=== PATIENT | female | born 1970 | race Caucasian/White ===

== ENCOUNTER 2021-09-03 00:53 | Inpatient (IN) | payer SELFPAY ==
[2021-09-03 03:03] VITALS: BMI 30.4
[2021-09-03] MEDS ORDERED: hydrALAZINE 20 MG/ML VIAL SLOW IVP PRN (03:23)
[2021-09-03] MEDS ORDERED: Dextrose 50% Abboject 50 ML SYRINGE SLOW IVP PRN ×2 (03:36→09:30)
[2021-09-03] MEDS ORDERED: Dextrose 5% in Water 1,000 ML IV PRN ×2 (03:36→09:30)
[2021-09-03] MEDS ORDERED: HumaLOG 300 UNITS/3 ML VIAL SC PRN ×2 (03:36)
[2021-09-03] MEDS: Acetaminophen 325 MG TAB PO PRN ×2 (03:39→10:39)
[2021-09-03] MEDS ORDERED: Nicotine 14 MG PATCH TD SCH (04:00)
[2021-09-03 05:56] LABS: #Eosinphils 0.2 thou/uL (0.0-0.7); #Lymphocytes 2.1 thou/uL (1.20-3.40); #Monocytes 0.3 thou/uL (0.11-0.59); #Neutrophils 4.9 thou/uL (1.40-6.50); %Basophils 0.2 % (0.0-1.0); %Eosinophils 2.9 % (0.0-10.0); %Lymphocytes 27.9 % (21.0-51.0); %Monocytes 4.1 % (0.0-10.0); %Neutrophils 64.8 % (42.0-75.0); Hemoglobin 14.4 g/dL (12.0-16.0); Mean Corpuscular HGB CONC 32.4 g/dL (32.0-36.0); Mean Corpuscular Hemoglobin 24.8 pg (27.0-31.0); Mean Corpuscular Volume 76.7 fL (78.0-98.0); Mean Platelet Volume 8.7 fL (7.4-10.4); Platelet Count 206 thou/uL (130-400); RBC Distribution Width 14.1 % (11.5-14.5); White Blood Cell (WBC) Count 7.5 thou/uL (4.8-10.8)
[2021-09-03 06:01] LABS: Hemoglobin A1c 12.1 % (4.0-6.0)
[2021-09-03 06:19] LABS: Anion Gap 14 mmol/L (10-20); BUN (Urea Nitrogen) 8 mg/dL (7.0-18.7); Calc. Creatinine Clearance 108 mL/min (70-130); Calcium 9.2 mg/dL (7.8-10.44); Carbon Dioxide 21 mmol/L (22-29); Cardiac Risk 8.3 (Less than 4.5); Chloride 102 mmol/L (98-107); Cholesterol 216 mg/dl (< 200 Desired); Glucose 355 mg/dL (70-105); HDL Cholesterol 26 mg/dL (>60 Neg Risk); Potassium 3.4 mmol/L (3.5-5.1); Sodium 134 mmol/L (136-145); Triglycerides 565 mg/dL (Less than 150)
[2021-09-03] MEDS ORDERED: Potassium Chloride 20 MEQ TAB PO SCH ×2 (09:30→09:45)
[2021-09-03] MEDS: Aspirin 81 mg Enteric Coated Tablet PO SCH (10:37)
[2021-09-03] MEDS: Enoxaparin Sodium 40 MG/0.4 ML SYRINGE SC SCH (10:38)
[2021-09-03] MEDS: Lisinopril 20 MG TAB PO SCH (10:38)
[2021-09-03] MEDS: Promethazine HCl 12.5 MG in Sodium Chloride 0.9% 50 ML IVPB PRN (10:38)
[2021-09-03] MEDS: NPH, Human Insulin Isophane 300 UNIT/3 ML VIAL SC SCH ×2 (10:40→22:14)
[2021-09-03] MEDS: Nicotine 14 MG PATCH TD SCH (17:15)
[2021-09-03] MEDS: HumaLOG 300 UNITS/3 ML VIAL SC PRN (17:16)
[2021-09-03] MEDS: Rosuvastatin 20 MG TAB PO SCH (20:22)
[2021-09-03] MEDS: HYDROcodone/Acetaminophen 5/325 mg Tablet PO PRN (20:22)
[2021-09-03] MEDS ORDERED: Atorvastatin Calcium 40 MG TAB PO SCH (21:00)
[2021-09-03] MEDS: HumuLIN 70/30 (300 UNITS/3 ML VIAL) SC SCH (22:14)
[2021-09-04] MEDS: Promethazine HCl 12.5 MG in Sodium Chloride 0.9% 50 ML IVPB PRN ×2 (02:44→11:04)
[2021-09-04 05:35] LABS: #Eosinphils 0.2 thou/uL (0.0-0.7); #Lymphocytes 1.6 thou/uL (1.20-3.40); #Monocytes 0.3 thou/uL (0.11-0.59); #Neutrophils 3.7 thou/uL (1.40-6.50); %Basophils 0.2 % (0.0-1.0); %Eosinophils 4.2 % (0.0-10.0); %Monocytes 4.8 % (0.0-10.0); %Neutrophils 63.8 % (42.0-75.0); Hemoglobin 14.1 g/dL (12.0-16.0); Mean Corpuscular HGB CONC 33.2 g/dL (32.0-36.0); Mean Corpuscular Hemoglobin 25.6 pg (27.0-31.0); Mean Corpuscular Volume 77.2 fL (78.0-98.0); Mean Platelet Volume 8.8 fL (7.4-10.4); Platelet Count 195 thou/uL (130-400); RBC Distribution Width 14.1 % (11.5-14.5); Red Blood Cell (RBC) Count 5.52 mill/uL (4.20-5.40); White Blood Cell (WBC) Count 5.8 thou/uL (4.8-10.8)
[2021-09-04 05:58] LABS: Anion Gap 12 mmol/L (10-20); BUN (Urea Nitrogen) 9 mg/dL (7.0-18.7); Calc. Creatinine Clearance 116 mL/min (70-130); Calcium 9.2 mg/dL (7.8-10.44); Carbon Dioxide 23 mmol/L (22-29); Chloride 103 mmol/L (98-107); Glucose 258 mg/dL (70-105); Potassium 3.9 mmol/L (3.5-5.1); Sodium 134 mmol/L (136-145)
[2021-09-04] MEDS: HumaLOG 300 UNITS/3 ML VIAL SC PRN ×3 (06:09→17:59)
[2021-09-04] MEDS: HYDROcodone/Acetaminophen 5/325 mg Tablet PO PRN (08:43)
[2021-09-04] MEDS: Lisinopril 20 MG TAB PO SCH (08:43)
[2021-09-04] MEDS: Fenofibrate Nanocrystallized 145 MG TAB PO SCH (08:44)
[2021-09-04] MEDS: Aspirin 81 mg Enteric Coated Tablet PO SCH (08:44)
[2021-09-04] MEDS: Enoxaparin Sodium 40 MG/0.4 ML SYRINGE SC SCH (08:44)
[2021-09-04] MEDS: HumuLIN 70/30 (300 UNITS/3 ML VIAL) SC SCH ×2 (09:49→22:21)
[2021-09-04] MEDS: NPH, Human Insulin Isophane 300 UNIT/3 ML VIAL SC SCH ×2 (09:49→22:21)
[2021-09-04] MEDS ORDERED: Clopidogrel Bisulfate 300 MG TAB PO SCH (13:30)
[2021-09-04] MEDS: Nicotine 14 MG PATCH TD SCH (17:51)
[2021-09-04] MEDS: metFORMIN 850 MG TAB PO SCH (17:51)
[2021-09-04] MEDS: Rosuvastatin 20 MG TAB PO SCH (22:21)
[2021-09-05] MEDS: Promethazine HCl 12.5 MG in Sodium Chloride 0.9% 50 ML IVPB PRN (03:43)
[2021-09-05 06:16] LABS: #Eosinphils 0.2 thou/uL (0.0-0.7); #Lymphocytes 1.8 thou/uL (1.20-3.40); #Monocytes 0.3 thou/uL (0.11-0.59); #Neutrophils 4.3 thou/uL (1.40-6.50); %Basophils 0.7 % (0.0-1.0); %Eosinophils 3.6 % (0.0-10.0); %Lymphocytes 27.1 % (21.0-51.0); %Monocytes 4.6 % (0.0-10.0); Hemoglobin 14.3 g/dL (12.0-16.0); Mean Corpuscular HGB CONC 33.7 g/dL (32.0-36.0); Mean Corpuscular Hemoglobin 26.3 pg (27.0-31.0); Mean Corpuscular Volume 78.1 fL (78.0-98.0); Mean Platelet Volume 9.3 fL (7.4-10.4); Platelet Count 212 thou/uL (130-400); RBC Distribution Width 14.3 % (11.5-14.5); Red Blood Cell (RBC) Count 5.44 mill/uL (4.20-5.40); White Blood Cell (WBC) Count 6.7 thou/uL (4.8-10.8)
[2021-09-05] MEDS: HumaLOG 300 UNITS/3 ML VIAL SC PRN ×3 (06:37→17:15)
[2021-09-05 06:42] LABS: Anion Gap 14 mmol/L (10-20); BUN (Urea Nitrogen) 11 mg/dL (7.0-18.7); Calc. Creatinine Clearance 118 mL/min (70-130); Calcium 9.5 mg/dL (7.8-10.44); Carbon Dioxide 22 mmol/L (22-29); Chloride 103 mmol/L (98-107); Glucose 185 mg/dL (70-105); Potassium 3.7 mmol/L (3.5-5.1); Sodium 135 mmol/L (136-145)
[2021-09-05] MEDS: Acetaminophen 325 MG TAB PO PRN (08:35)
[2021-09-05] MEDS: Aspirin 81 mg Enteric Coated Tablet PO SCH (08:35)
[2021-09-05] MEDS: Fenofibrate Nanocrystallized 145 MG TAB PO SCH (08:35)
[2021-09-05] MEDS: Lisinopril 20 MG TAB PO SCH (08:36)
[2021-09-05] MEDS: metFORMIN 850 MG TAB PO SCH ×2 (08:37→17:22)
[2021-09-05] MEDS: NPH, Human Insulin Isophane 300 UNIT/3 ML VIAL SC SCH (08:37)
[2021-09-05] MEDS: HumuLIN 70/30 (300 UNITS/3 ML VIAL) SC SCH (08:37)
[2021-09-05] MEDS: Enoxaparin Sodium 40 MG/0.4 ML SYRINGE SC SCH (08:38)
[2021-09-05] MEDS ORDERED: Clopidogrel Bisulfate 75 MG TAB PO SCH (09:00)
[2021-09-05 15:41] VITALS: BP 132/79; TEMP 98.3
[2021-09-05] MEDS: Nicotine 14 MG PATCH TD SCH (17:37)
== END 2021-09-05 17:42 | disposition home or self-care (01) | DRG 65 ==
LOC: NEURO 00:53 → OBSVTOIN 09-04 11:29
PROVIDERS: ADMIT Internal Medicine; ATTEND Internal Medicine
DX: I63.9 Cerebral infarction, unspecified (principal); G81.14 Spastic hemiplegia affecting left nondominant side; R47.81 Slurred speech; R29.810 Facial weakness; F17.210 Nicotine dependence, cigarettes, uncomplicated; I10 Essential (primary) hypertension; E11.65 Type 2 diabetes mellitus with hyperglycemia; Z88.8 Allergy status to other drugs, medicaments and biological substances; Z88.1 Allergy status to other antibiotic agents; Z88.2 Allergy status to sulfonamides; Z90.49 Acquired absence of other specified parts of digestive tract; Z90.710 Acquired absence of both cervix and uterus
CPT/HCPCS: 36415; 36416; 70551; 80048; 80061; 83036; 85025; 93306; 93880; 96365; 96372; 96376; G0378; J1650; J1815; J2550

== ENCOUNTER 2023-01-17 23:14 | Emergency (ER) | payer SELFPAY ==
[2023-01-17] MEDS ORDERED: Acetaminophen 500 MG TAB ONE (23:37)
[2023-01-18 00:28] LABS: SARS-CoV-2 NAA Rapid Test Not Detected (NotDetected)
== END 2023-01-18 00:45 | disposition home or self-care (01) ==
LOC: ERS 23:14
DX: B34.9 Viral infection, unspecified (principal); I10 Essential (primary) hypertension; F17.210 Nicotine dependence, cigarettes, uncomplicated; Z20.822 Contact with and (suspected) exposure to COVID-19
CPT/HCPCS: 71045; 93005

== ENCOUNTER 2024-08-07 19:11 | Inpatient (IN) | payer OTHER ==
[~2024-08-07 19:11] MED LIST: Iopamidol 370 76% 100 ML VIAL ONE
[2024-08-07] MEDS ORDERED: Metoprolol Tartrate 5 MG (5 mL) VIAL ONE (19:13)
[2024-08-07] MEDS ORDERED: Nitroglycerin 50 MG/250 ML BOT 250 ML ONE (19:20)
[2024-08-07] MEDS ORDERED: Verapamil 5 MG/2 ML VIAL ONE (19:20)
[2024-08-07] MEDS ORDERED: Heparin 10,000 UNITS/ 10 ML VIAL ONE (19:20)
[2024-08-07] MEDS ORDERED: Midazolam HCl 2 mg/2 ml Vial ONE ×2 (19:29→22:08)
[2024-08-07] MEDS ORDERED: Amiodarone 150 MG/3 ML VIAL ONE ×2 (19:39→19:42)
[2024-08-07] MEDS ORDERED: Atropine Sulfate 1 mg/10 ml Syringe ONE (19:55)
[2024-08-07] MEDS ORDERED: DOPamine 400 MG/D5W 250 ML 250 ML ONE (19:58)
[2024-08-07] MEDS ORDERED: EPINEPHrine 1 MG/10 ML Abboject SYRINGE ONE (20:08)
[2024-08-07] MEDS ORDERED: Promethazine HCl 25 MG/ML VIAL ONE (20:13)
[2024-08-07] MEDS ORDERED: fentaNYL 50 mcg/mL 1 mL Vial ONE ×2 (20:20→21:57)
[2024-08-07] MEDS ORDERED: Tirofiban-0.9% Sodium Chloride 250 ML ONE (20:25)
[2024-08-07] MEDS ORDERED: Nitroglycerin 0.4 MG TAB (25 Tab Bottle) SL PRN (23:02)
[2024-08-07 23:09] LABS: #Basophils Less than 0.03 10x3/uL (0.0-0.2); %Basophils 0.1 % (0.0-1.0); %Lymphocytes 9.3 % (21.0-51.0); %Monocytes 2.4 % (0.0-10.0); %Neutrophils 86.7 % (42.0-75.0); Hematocrit 41.1 % (36.0-47.0); Hemoglobin 13.5 g/dL (12.0-16.0); Mean Corpuscular HGB CONC 32.8 g/dL (32.0-36.0); Mean Corpuscular Hemoglobin 26.4 pg (27.0-31.0); Mean Corpuscular Volume 80.4 fL (78.0-98.0); Mean Platelet Volume 11.7 fL (7.4-10.4); Platelet Count 243 10x3/uL (130-400); RBC Distribution Width 13.3 % (11.5-14.5); Red Blood Cell (RBC) Count 5.11 mill/uL (4.20-5.40)
[2024-08-07] MEDS ORDERED: Mag-Al 1200 mg/1200 mg/30 ML UDCUP PO PRN (23:13)
[2024-08-07] MEDS ORDERED: Milk Of Magnesia 30 ML UDCUP PO PRN (23:13)
[2024-08-07] MEDS ORDERED: Tirofiban-0.9% Sodium Chloride 250 ML IVPB SCH (23:15)
[2024-08-07 23:18] LABS: ALT (SGPT) 40 U/L (8-55); AST (SGOT) 34 U/L (5-34); Alkaline Phosphatase 138 U/L (40-110); Anion Gap 22 mmol/L (10-20); BUN (Urea Nitrogen) 19 mg/dL (9.8-20.1); Bilirubin, Total 0.3 mg/dL (0.2-1.2); Calc. Creatinine Clearance 0 mL/min (70-130); Calcium 9.3 mg/dL (7.8-10.44); Carbon Dioxide 17 mmol/L (22-29); Chloride 104 mmol/L (98-107); Cholesterol 136 mg/dl (< 200 Desired); Estimated GFR 53; Globulin 3.2 g/dL (2.4-3.5); Glucose 309 mg/dL (70-105); HDL Cholesterol 25 mg/dL (>60 Neg Risk); Potassium 3.6 mmol/L (3.5-5.1); Protein, Total 7.2 g/dL (6.0-8.3); Sodium 139 mmol/L (136-145)
[2024-08-07 23:28] LABS: Troponin I 0.215 ng/mL (< 0.028)
[2024-08-07] MEDS ORDERED: Promethazine HCl 12.5 MG in Sodium Chloride 0.9% 50 ML IVPB PRN (23:55)
[2024-08-08] MEDS: DOPamine 400 MG/D5W 250 ML 250 ML ONE (00:09)
[2024-08-08] MEDS: Sodium Chloride 0.9% 1,000 ML IV SCH ×4 (00:17→21:54)
[2024-08-08] MEDS: DOPamine 400 MG/D5W 250 ML 250 ML IVPB SCH (00:19)
[2024-08-08] MEDS ORDERED: Dextrose 50% Abboject 50 ML SYRINGE SLOW IVP PRN (00:26)
[2024-08-08] MEDS ORDERED: Insulin Lispro 100 UNIT/ML 10 ML VIAL SC PRN (00:26)
[2024-08-08] MEDS ORDERED: Dextrose 5% in Water 1,000 ML IV PRN (00:26)
[2024-08-08] MEDS ORDERED: Glucagon 1 MG/ML KIT IM PRN (00:26)
[2024-08-08] MEDS: Promethazine HCl 12.5 MG in Sodium Chloride 0.9% 100 ML IVPB PRN (01:48)
[2024-08-08] MEDS: Amiodarone 450 MG in Dextrose 5% in Water 250 ML IVPB SCH (02:39)
[2024-08-08 03:41] LABS: Analyzer IN Cardio ER; Base Excess -15.5 mEq/L (-2.0 to +3.0); Calcium, Ionized (venous) 1.07 mmol/L (1.16-1.32); Chloride (VBG) 101 mmol/L (98-106); Hematocrit-VBG 37 % (36.0-47.0); Hemoglobin (Hb) 12.6 g/dL (11.7-16.0); Sodium 130 mmol/L (133-146); pH (venous) 7.238 (7.32-7.43)
[2024-08-08 03:42] LABS: Actual Bicarbonate (HCO3v) 10.1 mEq/L (22-28); Potassium (VBG) 6.13 mmol/L (3.70-5.30)
[2024-08-08 04:36] LABS: Troponin I 110.129 ng/mL (< 0.028)
[2024-08-08 06:02] VITALS: BMI 28.0
[2024-08-08 06:04] LABS: Hemoglobin A1c 6.9 % (4.0-6.0)
[2024-08-08 06:24] LABS: ALT (SGPT) 121 U/L (8-55); AST (SGOT) 308 U/L (5-34); Albumin 3.3 g/dL (3.5-5.0); Alkaline Phosphatase 132 U/L (40-110); Anion Gap 19 mmol/L (10-20); BUN (Urea Nitrogen) 23 mg/dL (9.8-20.1); Bilirubin, Total 0.5 mg/dL (0.2-1.2); Calc. Creatinine Clearance 48 mL/min (70-130); Calcium 7.8 mg/dL (7.8-10.44); Carbon Dioxide 11 mmol/L (22-29); Cardiac Risk 4.7 (Less than 4.5); Chloride 104 mmol/L (98-107); Cholesterol 113 mg/dl (< 200 Desired); Estimated GFR 35; Globulin 2.6 g/dL (2.4-3.5); Glucose 678 mg/dL (70-105); HDL Cholesterol 24 mg/dL (>60 Neg Risk); LDL Cholesterol, Calculated 34 mg/dL; Magnesium 1.8 mg/dL (1.6-2.6); Potassium 6.4 mmol/L (3.5-5.1); Protein, Total 5.9 g/dL (6.0-8.3); Sodium 128 mmol/L (136-145); Triglycerides 274 mg/dL (Less than 150)
[2024-08-08 06:35] LABS: Glucose 610 mg/dL (70-105)
[2024-08-08 06:35] LABS: Lactic Acid 5.06 mmol/L (0.5-2.2)
[2024-08-08] MEDS: Insulin Regular, Human 100 UNIT/ML 10 ML VIAL IVP SCH (06:48)
[2024-08-08 06:49] LABS: Lymphocytes 4 % (21-51); Macrocytosis SLIGHT = 6-15 cells HPF (0-5); Monocytes 3 % (0-10); Neutrophil 93 % (42-75); Platelet Adequacy Comment Platelets Normal
[2024-08-08] MEDS: Sodium Bicarb 50 MEQ/50 ML Abboject 8.4% SYRINGE IVP SCH (06:49)
[2024-08-08] MEDS: Magnesium 2 GM/50 ML(in water) 2 GM in Premix 1 BAG IVPB SCH (06:49)
[2024-08-08 06:52] LABS: Hematocrit 37.2 % (36.0-47.0); Hemoglobin 11.8 g/dL (12.0-16.0); Mean Corpuscular HGB CONC 31.7 g/dL (32.0-36.0); Mean Corpuscular Hemoglobin 26.3 pg (27.0-31.0); Mean Corpuscular Volume 82.9 fL (78.0-98.0); Mean Platelet Volume 11.7 fL (7.4-10.4); Platelet Count 368 10x3/uL (130-400); RBC Distribution Width 13.8 % (11.5-14.5); Red Blood Cell (RBC) Count 4.49 mill/uL (4.20-5.40)
[2024-08-08] MEDS: Sodium Bicarb 50 MEQ/50 ML Abboject 8.4% SYRINGE ONE (07:00)
[2024-08-08 08:34] LABS: ALT (SGPT) 282 U/L (8-55); AST (SGOT) 427 U/L (5-34); Albumin 3.1 g/dL (3.5-5.0); Alkaline Phosphatase 130 U/L (40-110); Anion Gap 19 mmol/L (10-20); BUN (Urea Nitrogen) 22 mg/dL (9.8-20.1); Bilirubin, Total 0.7 mg/dL (0.2-1.2); Calc. Creatinine Clearance 52 mL/min (70-130); Calcium 7.8 mg/dL (7.8-10.44); Carbon Dioxide 15 mmol/L (22-29); Chloride 107 mmol/L (98-107); Estimated GFR 38; Globulin 2.5 g/dL (2.4-3.5); Glucose 509 mg/dL (70-105); Lactic Acid 7.37 mmol/L (0.5-2.2); Potassium 3.8 mmol/L (3.5-5.1); Protein, Total 5.6 g/dL (6.0-8.3); Sodium 137 mmol/L (136-145)
[2024-08-08 08:37] LABS: Amphetamine Detected (NotDetected); Barbiturates Screen Not Detected (NotDetected); Benzodiazepine Screen Not Detected (NotDetected); Cocaine Metabolite Screen Not Detected (NotDetected); Methadone Not Detected (NotDetected); Methamphetamine Detected (NotDetected); Opiate Screen Detected (NotDetected); Oxycodone Screen Not Detected (NotDetected); Phencyclidine (PCP) Not Detected (NotDetected); THC/Cannabinoid Screen Not Detected (NotDetected); Tricyclic Screen Not Detected (NotDetected)
[2024-08-08 08:46] LABS: Bilirubin Negative (Negative); Blood, Urine 1+ (Negative); CAUTI Indications for Culture Dysuria,urgency,freq; Clarity Clear (Clear); Glucose, Urine (Dipstick) Greater than 1000 mg/dL (Negative); Ketone, Urine Negative (Negative); Leukocyte Negative Leu/uL (Negative); Nitrite Negative (Negative); Protein, Urine (Dipstick) 50 mg/dL (Neg-Trace); RBC/HPF 0-3 HPF (0-3); Squamous Epithelial None Seen HPF (0-3); Urobilinogen Normal mg/dL (Less than 2); WBC/HPF 0-3 HPF (0-3)
[2024-08-08] MEDS: Clopidogrel Bisulfate 75 MG TAB PO SCH (08:54)
[2024-08-08] MEDS: Aspirin 81 mg Enteric Coated Tablet PO SCH (08:54)
[2024-08-08] MEDS: Insulin Glargine 30 UNITS/0.3 ML VIAL SC SCH (08:54)
[2024-08-08] MEDS: QUEtiapine 25 MG TAB PO SCH (08:54)
[2024-08-08] MEDS ORDERED: Aspirin Chewable 81 MG TAB PO SCH (09:00)
[2024-08-08] MEDS ORDERED: Lisinopril 2.5 MG TAB PO SCH (09:00)
[2024-08-08] MEDS ORDERED: Clopidogrel Bisulfate 75 MG TAB PO SCH (09:00)
[2024-08-08] MEDS ORDERED: Metoprolol Tartrate 25 MG TAB PO SCH ×2 (09:00)
[2024-08-08 09:14] LABS: Specific Gravity, Urine 1.056 (1.002-1.036)
[2024-08-08 09:15] LABS: Bacteria/HPF Rare-Few HPF (None Seen)
[2024-08-08 09:16] LABS: Urine Culture Reflex No No
[2024-08-08] MEDS: Tirofiban-0.9% Sodium Chloride 250 ML IVPB SCH (09:50)
[2024-08-08] MEDS: Nicotine 21 MG PATCH TD SCH (10:00)
[2024-08-08] MEDS: Insulin Lispro 100 UNIT/ML 10 ML VIAL SC PRN (10:01)
[2024-08-08] MEDS: Enoxaparin 40 MG (0.4 mL) SYRINGE SC SCH ×2 (10:18→21:50)
[2024-08-08 14:07] LABS: Troponin I 139.173 ng/mL (< 0.028)
[2024-08-08] MEDS: Atorvastatin Calcium 40 MG TAB PO SCH (21:49)
[2024-08-08] MEDS: Nicotine 7 MG PATCH TD SCH (21:54)
[2024-08-09 05:55] LABS: Lactic Acid 1.18 mmol/L (0.5-2.2)
[2024-08-09 07:15] LABS: Anion Gap 14 mmol/L (10-20); BUN (Urea Nitrogen) 22 mg/dL (9.8-20.1); Calc. Creatinine Clearance 66 mL/min (70-130); Calcium 8.1 mg/dL (7.8-10.44); Carbon Dioxide 18 mmol/L (22-29); Chloride 109 mmol/L (98-107); Estimated GFR 50; Glucose 229 mg/dL (70-105); Potassium 3.8 mmol/L (3.5-5.1); Sodium 137 mmol/L (136-145)
[2024-08-09] MEDS: Metoclopramide HCl 10 MG (2 mL) VIAL IVP SCH (10:43)
[2024-08-09] MEDS: ALPRAZolam 0.5 MG TAB PO SCH (10:44)
[2024-08-09 10:47] LABS: #Basophils Less than 0.03 10x3/uL (0.0-0.2); #Eosinophils Less than 0.03 10x3/uL (0.0-0.7); %Basophils 0.1 % (0.0-1.0); %Lymphocytes 8.5 % (21.0-51.0); %Monocytes 4.6 % (0.0-10.0); %Neutrophils 86.4 % (42.0-75.0); Hematocrit 28.7 % (36.0-47.0); Hemoglobin 9.6 g/dL (12.0-16.0); Mean Corpuscular HGB CONC 33.4 g/dL (32.0-36.0); Mean Corpuscular Hemoglobin 26.4 pg (27.0-31.0); Mean Corpuscular Volume 79.1 fL (78.0-98.0); Mean Platelet Volume 10.6 fL (7.4-10.4); Platelet Count 198 10x3/uL (130-400); RBC Distribution Width 14.4 % (11.5-14.5); Red Blood Cell (RBC) Count 3.63 mill/uL (4.20-5.40)
[2024-08-09] MEDS: Amiodarone 200 MG TAB PO SCH ×2 (13:09→20:34)
[2024-08-09] MEDS: Promethazine HCl 12.5 MG in Sodium Chloride 0.9% 50 ML IVPB SCH (20:34)
[2024-08-10 04:46] LABS: #Basophils Less than 0.03 10x3/uL (0.0-0.2); #Eosinophils Less than 0.03 10x3/uL (0.0-0.7); %Basophils 0.1 % (0.0-1.0); %Lymphocytes 13.8 % (21.0-51.0); %Monocytes 5.3 % (0.0-10.0); %Neutrophils 80.4 % (42.0-75.0); Hemoglobin 8.9 g/dL (12.0-16.0); Mean Corpuscular Hemoglobin 26.6 pg (27.0-31.0); Mean Corpuscular Volume 80.6 fL (78.0-98.0); Mean Platelet Volume 11.2 fL (7.4-10.4); Platelet Count 197 10x3/uL (130-400); RBC Distribution Width 14.7 % (11.5-14.5); Red Blood Cell (RBC) Count 3.35 mill/uL (4.20-5.40)
[2024-08-10 05:18] LABS: ALT (SGPT) 664 U/L (8-55); AST (SGOT) 375 U/L (5-34); Albumin 2.8 g/dL (3.5-5.0); Alkaline Phosphatase 129 U/L (40-110); Bilirubin, Direct 0.2 mg/dL (0.1-0.3); Bilirubin, Total 0.3 mg/dL (0.2-1.2); Protein, Total 4.9 g/dL (6.0-8.3)
[2024-08-10 05:22] LABS: Anion Gap 10 mmol/L (10-20); BUN (Urea Nitrogen) 22 mg/dL (9.8-20.1); Calc. Creatinine Clearance 67 mL/min (70-130); Calcium 7.7 mg/dL (7.8-10.44); Carbon Dioxide 18 mmol/L (22-29); Chloride 115 mmol/L (98-107); Estimated GFR 51; Glucose 140 mg/dL (70-105); Potassium 3.8 mmol/L (3.5-5.1); Sodium 139 mmol/L (136-145)
[2024-08-10 06:02] LABS: Critical Call Chem Troponin I RESULT DECREASING
[2024-08-10] MEDS: Pantoprazole DR 40 MG TAB PO SCH (08:08)
[2024-08-10] MEDS ORDERED: Ondansetron PF 4 MG/2 ML Vial IVP PRN ×2 (09:39→09:41)
[2024-08-11 04:49] LABS: #Basophils Less than 0.03 10x3/uL (0.0-0.2); %Basophils 0.2 % (0.0-1.0); %Eosinophils 0.4 % (0.0-10.0); %Lymphocytes 13.8 % (21.0-51.0); %Monocytes 4.1 % (0.0-10.0); %Neutrophils 80.9 % (42.0-75.0); Hematocrit 28.6 % (36.0-47.0); Hemoglobin 8.9 g/dL (12.0-16.0); Mean Corpuscular HGB CONC 31.1 g/dL (32.0-36.0); Mean Corpuscular Hemoglobin 26.3 pg (27.0-31.0); Mean Corpuscular Volume 84.6 fL (78.0-98.0); Mean Platelet Volume 11.4 fL (7.4-10.4); Platelet Count 165 10x3/uL (130-400); RBC Distribution Width 14.6 % (11.5-14.5); Red Blood Cell (RBC) Count 3.38 mill/uL (4.20-5.40)
[2024-08-11 05:34] LABS: Anion Gap 12 mmol/L (10-20); BUN (Urea Nitrogen) 20 mg/dL (9.8-20.1); Calc. Creatinine Clearance 75 mL/min (70-130); Carbon Dioxide 17 mmol/L (22-29); Chloride 111 mmol/L (98-107); Estimated GFR 53; Glucose 115 mg/dL (70-105); Potassium 3.5 mmol/L (3.5-5.1); Sodium 136 mmol/L (136-145)
[2024-08-11 05:50] LABS: ALT (SGPT) 502 U/L (8-55); AST (SGOT) 174 U/L (5-34); Albumin 2.8 g/dL (3.5-5.0); Alkaline Phosphatase 135 U/L (40-110); Bilirubin, Direct 0.2 mg/dL (0.1-0.3); Bilirubin, Total 0.4 mg/dL (0.2-1.2); Protein, Total 5.1 g/dL (6.0-8.3)
[2024-08-11] MEDS: Promethazine HCl 12.5 MG in Sodium Chloride 0.9% 50 ML IVPB PRN (08:37)
[2024-08-11] MEDS: Lisinopril 5 MG TAB PO SCH (09:18)
[2024-08-11] MEDS: Morphine 4 MG/ML VIAL SLOW IVP PRN (18:49)
[2024-08-12 05:42] LABS: #Basophils Less than 0.03 10x3/uL (0.0-0.2); %Basophils 0.1 % (0.0-1.0); %Eosinophils 1.4 % (0.0-10.0); %Monocytes 5.2 % (0.0-10.0); %Neutrophils 77.5 % (42.0-75.0); Hematocrit 29.8 % (36.0-47.0); Hemoglobin 9.3 g/dL (12.0-16.0); Mean Corpuscular HGB CONC 31.2 g/dL (32.0-36.0); Mean Corpuscular Hemoglobin 26.5 pg (27.0-31.0); Mean Corpuscular Volume 84.9 fL (78.0-98.0); Mean Platelet Volume 11.6 fL (7.4-10.4); Platelet Count 155 10x3/uL (130-400); RBC Distribution Width 14.5 % (11.5-14.5); Red Blood Cell (RBC) Count 3.51 mill/uL (4.20-5.40)
[2024-08-12 06:05] LABS: ALT (SGPT) 307 U/L (8-55); AST (SGOT) 60 U/L (5-34); Albumin 2.8 g/dL (3.5-5.0); Alkaline Phosphatase 134 U/L (40-110); Anion Gap 11 mmol/L (10-20); BUN (Urea Nitrogen) 17 mg/dL (9.8-20.1); Bilirubin, Direct 0.2 mg/dL (0.1-0.3); Bilirubin, Total 0.4 mg/dL (0.2-1.2); Calc. Creatinine Clearance 73 mL/min (70-130); Calcium 8.1 mg/dL (7.8-10.44); Carbon Dioxide 18 mmol/L (22-29); Chloride 110 mmol/L (98-107); Estimated GFR 51; Glucose 111 mg/dL (70-105); Potassium 3.4 mmol/L (3.5-5.1); Protein, Total 5.3 g/dL (6.0-8.3); Sodium 136 mmol/L (136-145)
[2024-08-12] MEDS: Potassium Chloride 20 MEQ TAB PO SCH (09:15)
[2024-08-12 10:50] VITALS: BMI 30.7
[2024-08-12] MEDS: Promethazine 25 MG TAB PO SCH (11:37)
[2024-08-12 16:13] VITALS: BP 106/58; TEMP 98
== END 2024-08-12 17:17 | disposition home or self-care (01) | DRG 321 ==
LOC: ERS 19:11 → CCL 19:18 → CCU 20:42 → 2NO 08-10 17:15
PROVIDERS: ADMIT Internal Medicine; ATTEND Internal Medicine
PROC: 027037Z Dilation of Coronary Artery, One Artery with Four or More Drug-eluting Intraluminal Devices, Percutaneous Approach (ICD-10-PCS; principal; 2024-08-09)
PROC: 4A023N7 Measurement of Cardiac Sampling and Pressure, Left Heart, Percutaneous Approach (ICD-10-PCS; 2024-08-09)
PROC: B2111ZZ Fluoroscopy of Multiple Coronary Arteries using Low Osmolar Contrast (ICD-10-PCS; 2024-08-09)
DX: I21.19 ST elevation (STEMI) myocardial infarction involving other coronary artery of inferior wall (principal); R57.0 Cardiogenic shock; I47.20 Ventricular tachycardia, unspecified; N17.9 Acute kidney failure, unspecified; E87.20 Acidosis, unspecified; E87.1 Hypo-osmolality and hyponatremia; E87.6 Hypokalemia; I25.10 Atherosclerotic heart disease of native coronary artery without angina pectoris; R79.89 Other specified abnormal findings of blood chemistry; F15.10 Other stimulant abuse, uncomplicated; E11.22 Type 2 diabetes mellitus with diabetic chronic kidney disease; I12.9 Hypertensive chronic kidney disease with stage 1 through stage 4 chronic kidney disease, or unspecified chronic kidney disease; E87.5 Hyperkalemia; R00.1 Bradycardia, unspecified; G89.29 Other chronic pain; M54.9 Dorsalgia, unspecified; D72.829 Elevated white blood cell count, unspecified; N18.30 Chronic kidney disease, stage 3 unspecified; E78.00 Pure hypercholesterolemia, unspecified; Z88.8 Allergy status to other drugs, medicaments and biological substances; Z88.0 Allergy status to penicillin; Z86.73 Personal history of transient ischemic attack (TIA), and cerebral infarction without residual deficits; Z90.49 Acquired absence of other specified parts of digestive tract; Z95.5 Presence of coronary angioplasty implant and graft; Z90.710 Acquired absence of both cervix and uterus; Z71.6 Tobacco abuse counseling
CPT/HCPCS: 36415; 36416; 71045; 80048; 80053; 80061; 80076; 80306; 81001; 82010; 82465; 82805; 83036; 83605; 83718; 83735; 84484; 85025; 85347; 92941; 93005; 93010; 93306; 93454; 93798; 96374; 96375; 97139; 99152; 99153; C1725; C1769; C1874; C1876; C1887; C1894; C9606; J0171; J0282; J0461; J1265; J1644; J1650; J1815; J2250; J2272; J2550; J2765; J3010; J3246; J3475; J7030; J7070; Q0169; Q9967

== ENCOUNTER 2024-09-08 08:31 | Emergency (ER) | payer OTHER | END 2024-09-08 10:26 | disposition home or self-care (01) | LOC: ERS 08:31 | DX: S93.401A Sprain of unspecified ligament of right ankle, initial encounter (principal); E11.9 Type 2 diabetes mellitus without complications; I10 Essential (primary) hypertension; Z87.891 Personal history of nicotine dependence; W01.0XXA Fall on same level from slipping, tripping and stumbling without subsequent striking against object, initial encounter | CPT/HCPCS: 99283 ==

== ENCOUNTER 2025-08-11 14:00 | Inpatient (IN) | payer BC, OTHER ==
[2025-08-11 14:19] LABS: #Basophils Less than 0.03 10x3/uL (0.0-0.2); #Eosinophils 0.47 10x3/uL (0.0-0.7); #Monocytes 0.40 10x3/uL (0.11-0.59); #Neutrophils 6.25 10x3/uL (1.40-6.50); %Basophils 0.2 % (0.0-1.0); %Eosinophils 5.4 % (0.0-10.0); %Lymphocytes 18.0 % (21.0-51.0); %Monocytes 4.6 % (0.0-10.0); %Neutrophils 71.6 % (42.0-75.0); Hematocrit 40.2 % (36.0-47.0); Hemoglobin 12.6 g/dL (12.0-16.0); Mean Corpuscular Hemoglobin 24.6 pg (27.0-31.0); Mean Corpuscular Volume 78.4 fL (78.0-98.0); Platelet Count 209 10x3/uL (130-400); Red Blood Cell (RBC) Count 5.13 mill/uL (4.20-5.40); White Blood Cell (WBC) Count 8.73 10x3/uL (4.8-10.8)
[2025-08-11] MEDS ORDERED: Iopamidol-370 76% 500 ML MDV (1 ML CHARGE) ONE (14:19)
[2025-08-11 14:33] LABS: INR-International Normal Ratio 1.0; Prothrombin Time 13.3 sec (12.0-14.7)
[2025-08-11 14:34] LABS: PTT 36.0 sec (22.9-36.1)
[2025-08-11 14:35] LABS: ALT (SGPT) 17 U/L (Less than 34); AST (SGOT) 24 U/L (11-34); Albumin 4.8 g/dL (3.1-4.5); Alkaline Phosphatase 83 U/L (40-110); Anion Gap 14 mmol/L (10-20); BUN (Urea Nitrogen) 17 mg/dL (9.8-20.1); Bilirubin, Total 0.3 mg/dL (0.3-1.2); Calc. Creatinine Clearance 0 mL/min (70-130); Calcium 10.1 mg/dL (7.8-10.44); Carbon Dioxide 24 mmol/L (22-29); Chloride 106 mmol/L (98-107); Globulin 2.9 g/dL (2.4-3.5); Glucose 180 mg/dL (70-105); Potassium 4.7 mmol/L (3.5-5.1); Sodium 139 mmol/L (136-145)
[2025-08-11] MEDS ORDERED: Senokot S 8.6-50 MG TAB PO PRN (15:25)
[2025-08-11] MEDS ORDERED: Ondansetron PF 4 MG/2 ML Vial IVP PRN (15:25)
[2025-08-11] MEDS ORDERED: hydrALAZINE 20 MG/ML VIAL SLOW IVP PRN (15:25)
[2025-08-11] MEDS ORDERED: Guaifenesin DM 100-10/5 ML UDCUP PO PRN (15:25)
[2025-08-11] MEDS ORDERED: Electrolyte Replacement Protocol 1 EACH FS SCH (15:30)
[2025-08-11] MEDS ORDERED: Dextrose 50% Abboject 50 ML SYRINGE SLOW IVP PRN (15:33)
[2025-08-11] MEDS ORDERED: Glucagon 1 MG/ML KIT IM PRN (15:33)
[2025-08-11] MEDS ORDERED: Magnesium 2 GM/50 ML(in water) 2 GM in Premix 1 BAG IVPB PRN (15:45)
[2025-08-11] MEDS ORDERED: Potassium Chloride 20 MEQ in Premix 1 BAG IVPB PRN (15:45)
[2025-08-11] MEDS ORDERED: PHOS-NAK 1 PKT PACK PO PRN (15:45)
[2025-08-11 18:07] VITALS: BMI 29.9
[2025-08-11] MEDS: Famotidine/PF 20 mg/2ml Vial SLOW IVP SCH (20:16)
[2025-08-11 21:40] LABS: Bacteria/HPF None Seen HPF (None Seen); CAUTI Indications for Culture Alt mental st,lethar; Glucose, Urine (Dipstick) Normal (Negative); Leukocyte 250 Leu/uL (Negative); Protein, Urine (Dipstick) Negative (Neg-Trace); RBC/HPF 0-3 HPF (0-3); Specific Gravity, Urine 1.024 (1.002-1.036)
[2025-08-11 21:43] LABS: Urine Culture Reflex Yes Yes
[2025-08-11 21:44] LABS: Cocaine Metabolite Screen Negative (Negative); THC/Cannabinoid Screen Negative (Negative); Tricyclic Screen Negative (Negative)
[2025-08-12 04:08] LABS: #Basophils Less than 0.03 10x3/uL (0.0-0.2); #Eosinophils 0.36 10x3/uL (0.0-0.7); #Monocytes 0.38 10x3/uL (0.11-0.59); #Neutrophils 3.29 10x3/uL (1.40-6.50); %Basophils 0.2 % (0.0-1.0); %Eosinophils 6.6 % (0.0-10.0); %Lymphocytes 26.0 % (21.0-51.0); %Monocytes 6.9 % (0.0-10.0); %Neutrophils 60.1 % (42.0-75.0); Hematocrit 38.4 % (36.0-47.0); Hemoglobin 11.8 g/dL (12.0-16.0); Mean Corpuscular Hemoglobin 24.2 pg (27.0-31.0); Mean Corpuscular Volume 78.7 fL (78.0-98.0); Platelet Count 161 10x3/uL (130-400); Red Blood Cell (RBC) Count 4.88 mill/uL (4.20-5.40); White Blood Cell (WBC) Count 5.47 10x3/uL (4.8-10.8)
[2025-08-12 04:32] LABS: ALT (SGPT) 12 U/L (Less than 34); AST (SGOT) 15 U/L (11-34); Albumin 4.0 g/dL (3.1-4.5); Alkaline Phosphatase 74 U/L (40-110); Anion Gap 12 mmol/L (10-20); BUN (Urea Nitrogen) 19 mg/dL (9.8-20.1); Bilirubin, Total 0.2 mg/dL (0.3-1.2); Calc. Creatinine Clearance 53 mL/min (70-130); Calcium 9.1 mg/dL (7.8-10.44); Carbon Dioxide 23 mmol/L (22-29); Cardiac Risk 3.4 (Less than 4.5); Chloride 109 mmol/L (98-107); Cholesterol 109 mg/dl (< 200 Desired); Globulin 2.4 g/dL (2.4-3.5); Glucose 136 mg/dL (70-105); HDL Cholesterol 32 mg/dL (>60 Neg Risk); LDL Cholesterol, Calculated 43 mg/dL; Potassium 4.1 mmol/L (3.5-5.1); Sodium 140 mmol/L (136-145); Triglycerides 170 mg/dL (Less than 150)
[2025-08-12] MEDS: Aspirin 81 mg Enteric Coated Tablet PO SCH (09:20)
[2025-08-12] MEDS: Acetaminophen 325 MG TAB PO PRN (22:02)
[2025-08-13 05:00] LABS: #Basophils Less than 0.03 10x3/uL (0.0-0.2); #Eosinophils 0.44 10x3/uL (0.0-0.7); #Monocytes 0.41 10x3/uL (0.11-0.59); #Neutrophils 3.95 10x3/uL (1.40-6.50); %Basophils 0.3 % (0.0-1.0); %Eosinophils 6.8 % (0.0-10.0); %Lymphocytes 25.2 % (21.0-51.0); %Monocytes 6.3 % (0.0-10.0); %Neutrophils 61.2 % (42.0-75.0); Hematocrit 40.0 % (36.0-47.0); Hemoglobin 12.5 g/dL (12.0-16.0); Mean Corpuscular Hemoglobin 24.5 pg (27.0-31.0); Mean Corpuscular Volume 78.4 fL (78.0-98.0); Platelet Count 160 10x3/uL (130-400); Red Blood Cell (RBC) Count 5.10 mill/uL (4.20-5.40); White Blood Cell (WBC) Count 6.46 10x3/uL (4.8-10.8)
[2025-08-13 05:18] LABS: Anion Gap 16 mmol/L (10-20); BUN (Urea Nitrogen) 14 mg/dL (9.8-20.1); Calc. Creatinine Clearance 61 mL/min (70-130); Calcium 9.3 mg/dL (7.8-10.44); Carbon Dioxide 21 mmol/L (22-29); Chloride 107 mmol/L (98-107); Glucose 125 mg/dL (70-105); Potassium 4.8 mmol/L (3.5-5.1); Sodium 139 mmol/L (136-145)
[2025-08-13] MEDS: Amiodarone 200 MG TAB PO SCH (09:25)
[2025-08-13] MEDS: Sodium Bicarbonate Tab 325 MG TAB PO SCH (14:33)
[2025-08-13 14:41] VITALS: BP 149/87; TEMP 98.2
[2025-08-13] MEDS ORDERED: Sodium Bicarbonate Tab 325 MG TAB PO SCH (21:00)
== END 2025-08-13 15:00 | disposition home or self-care (01) | DRG 65 ==
LOC: ERS 14:00 → SUATTDRO 14:00 → 2SE 17:21
PROVIDERS: ADMIT Internal Medicine; ATTEND Student in an Organized Health Care Education/Training Program
DX: I63.9 Cerebral infarction, unspecified (principal); E87.20 Acidosis, unspecified; N17.9 Acute kidney failure, unspecified; R29.704 NIHSS score 4; E78.5 Hyperlipidemia, unspecified; I12.9 Hypertensive chronic kidney disease with stage 1 through stage 4 chronic kidney disease, or unspecified chronic kidney disease; N18.31 Chronic kidney disease, stage 3a; E11.22 Type 2 diabetes mellitus with diabetic chronic kidney disease; I25.2 Old myocardial infarction; Z90.49 Acquired absence of other specified parts of digestive tract; Z90.710 Acquired absence of both cervix and uterus; Z95.5 Presence of coronary angioplasty implant and graft; Z87.891 Personal history of nicotine dependence; Z88.8 Allergy status to other drugs, medicaments and biological substances; Z88.2 Allergy status to sulfonamides; Z79.82 Long term (current) use of aspirin; Z79.899 Other long term (current) drug therapy
CPT/HCPCS: 36415; 36416; 70450; 70496; 70498; 70551; 71045; 80048; 80053; 80061; 80306; 81001; 83036; 84443; 84484; 85025; 85610; 85730; 87077; 87086; 93005; 94760; J1308; J2550; J7030; J7120; Q9967